=== PATIENT | male | born 1980 | race Caucasian/White ===

== ENCOUNTER 2017-01-19 01:08 | Inpatient (IN) | payer SELFPAY ==
[~2017-01-19] VITALS: Ht 180.3 cm; Wt 69.3 kg
[2017-01-19 01:30] VITALS: BP 107/60; PULSE 74; RESP 22; TEMP 98.9; O2SAT 100; O2SAT 99
[2017-01-19] MEDS ORDERED: ONDANSETRON HCL 4 MG/2 ML VIAL IV ONE (01:45)
[2017-01-19] MEDS ORDERED: SODIUM CHLOR 0.9% 1000 ML INJ 1,000 ML IV ONE (01:45)
[2017-01-19] MEDS ORDERED: LORazepam 2 MG/ML VIAL IV PUSH ONE (02:00)
[2017-01-19 02:04] LABS: AUTOMATED NEUTROPHIL # 8.4 TH/MM3 (1.8-7.7); BASOPHIL % 0.4 % (0.0-2.0); HEMATOCRIT 40.5 % (39.0-51.0); HEMO FLAGS DIFF FINAL; LYMPH % 9.8 % (9.0-44.0); MEAN CELL VOLUME 90.7 FL (80.0-100.0); MEAN CORPUSCULAR HEMOGLOBIN 30.5 PG (27.0-34.0); MEAN CORPUSCULAR HGB CONC 33.7 % (32.0-36.0); MONO % 6.6 % (0.0-8.0); NEUT % 83.2 % (16.0-70.0); PLATELET COUNT 156 TH/MM3 (150-450); RED BLOOD COUNT 4.47 MIL/MM3 (4.50-5.90); RED CELL DISTRIBUTION WIDTH 13.5 % (11.6-17.2); WHITE BLOOD COUNT 10.1 TH/MM3 (4.0-11.0)
[2017-01-19 02:26] LABS: ANION GAP 13 MEQ/L (5-15); AST (GOT) 135 U/L (15-37); BICARBONATE 22.8 MEQ/L (21.0-32.0); BLOOD UREA NITROGEN 21 MG/DL (7-18); CHLORIDE 104 MEQ/L (98-107); GLOMERULAR FILTRATION RATE 87 ML/MIN (>89); SODIUM (NA) 140 MEQ/L (136-145)
--- NOTE | 2017-01-19 02:29 | PD ---
HPI Chief Complaint: Psychiatric Symptoms Time Seen by Provider: 01:28 Travel History International Travel<30 days: No Contact w/Intl Traveler<30days: No Traveled to known affect area: No History of Present Illness HPI The patient is a 36 year old male who presents to the [facility] emergency department with a history of being brought in as a Bronson act after a standoff with the police since yesterday at 5:30 AM. This standoff lasted for many hours. The patient was locked in his apartment according to the record. Into the apartment was sprayed multiple cans of pepper spray called OC and tear gas called CS. The patient on arrival was placed in the deluge for decontamination. On arrival back to the room, the patient has a clear nasal discharge and occasional cough. The patient otherwise is in no acute distress. The patient reports feeling hungry and thirsty. He reports that he has not been eating or drinking throughout the day. The patient reports that he has a long-standing tendencies since childhood of stacking things when he gets anxious. He reports that he is in the process of starting a new job, and he has been under more stress recently. He has been stacking rocks outside of his home. He reports that one of his neighbors was getting upset about this and he thought that the police were called for this. He noticed that the police were outside the back of his home. He reports that he has a fear of the police, therefore he became agitated. He reports that things escalated from there. He denies having any depression, anxiety, suicidal, or homicidal ideations prior to this. He reports that when the police sprayed the pepper spray into his home he is concerned that they have destroyed most of his belongings. He reports that this made him depressed. A review of systems otherwise, the patient denies any recent fevers, any history of fever,neck pain, chest pain, shortness of breath, abdominal pain, vomiting, diarrhea, urinary symptoms, or neurologic symptoms. [facility] Past Medical History Narrative Medical The patient's past medical history is reportedly none. Past Surgical History Narrative Surgical The patient's past surgical history is significant for right knee arthroscopy. Social History Alcohol Use: Yes (occasional) Tobacco Use: Yes (a quarter of a pack per day) Substance Use: Yes (marijuana) Allergies-Medications (Allergen,Severity, Reaction): Coded Allergies: No Known Allergies (Unverified , 01/19/17) Reported Meds & Prescriptions Reported Meds & Active Scripts Active No Active Prescriptions or Reported Medications Narrative Medication None Review of Systems Except as stated in HPI: all other systems reviewed are Neg General / Constitutional: No: Fever Eyes: No: Visual changes HENT: Positive: Congestion, No: Headaches Cardiovascular: No: Chest Pain or Discomfort Respiratory: Positive: Cough, No: Shortness of Breath Gastrointestinal: No: Nausea, Vomiting, Diarrhea, Abdominal Pain Genitourinary: No: Dysuria Musculoskeletal: No: Pain Skin: No Rash Neurologic: No: Weakness, Focal Abnormalities, Change in Mentation, Slurred Speech, Sensory Disturbance Psychiatric: No: Depression Endocrine: No: Polydipsia Hematologic/Lymphatic: No: Easy Bruising Physical Exam Narrative General: The patient is a well-developed well-nourished male in no acute distress. The patient is somewhat anxious appearing on examination. Head and Neck exam: Head is normocephalic atraumatic. Eyes: EOMI, pupils are equal round and reactive to light. Nose: Midline septum with pink mucous membranes. He has a clear nasal discharge. Mouth: Dentition unremarkable. Moist mucus membranes. Posterior oropharynx is mildly erythematous. No tonsillar hypertrophy. Uvula midline. Airway patent. Neck: No palpable lymphadenopathy. No nuchal rigidity. No thyromegaly. Cardiovascular: Regular rate and rhythm without murmurs, gallops, or rubs. Lungs: Clear to auscultation bilaterally. No wheezes, rhonchi, or rales. Abdomen: Soft, without tenderness to palpation in all 4 quadrants of the abdomen. No guarding, rebound, or rigidity. Normal bowel sounds are audible. No tenderness on palpation of McBurney's point. Negative Carter's sign. Extremities: No clubbing, cyanosis, or edema. 2+ pulses in all 4 extremities. Back: No spinous process tenderness to palpation. No costovertebral angle tenderness to palpation. Neurologic Exam: Grossly nonfocal. Skin Exam: No rash noted. Intact skin that is warm and dry. Data Data Last Documented VS Vital Signs Date Time Temp Pulse Resp B/P Pulse Ox O2 Delivery O2 Flow Rate FiO2 01/19/17 01:30 98.9 74 22 107/60 100 01/19/17 01:30 Room Air Orders Complete Blood Count With Diff (01/19/17 01:37) Comprehensive Metabolic Panel (01/19/17 01:37) Thyroid Stimulating Hormone (01/19/17 01:37) Urinalysis - C+S If Indicated (01/19/17 01:37) Oximetry (01/19/17 01:37) Iv Access Insert/Monitor (01/19/17 01:37) Ecg Monitoring (01/19/17 01:37) Psych Screen (01/19/17 01:37) Drug Screen, Random Urine (01/19/17 01:37) Alcohol (Ethanol) (01/19/17 01:37) Salicylates (Aspirin) (01/19/17 01:37) Tylenol (Acetaminophen) (01/19/17 01:37) Sodium Chlor 0.9% 1000 Ml Inj (Ns 1000 M (01/19/17 01:45) Ondansetron Inj (Zofran Inj) (01/19/17 01:45) Lorazepam Inj (Ativan Inj) (01/19/17 02:00) Labs Laboratory Tests Test 01/19/17 01:55 White Blood Count 10.1 TH/MM3 Red Blood Count 4.47 MIL/MM3 Hemoglobin 13.6 GM/DL Hematocrit 40.5 % Mean Corpuscular Volume 90.7 FL Mean Corpuscular Hemoglobin 30.5 PG Mean Corpuscular Hemoglobin 33.7 % Concent Red Cell Distribution Width 13.5 % Platelet Count 156 TH/MM3 Mean Platelet Volume 7.7 FL Neutrophils (%) (Auto) 83.2 % Lymphocytes (%) (Auto) 9.8 % Monocytes (%) (Auto) 6.6 % Eosinophils (%) (Auto) 0.0 % Basophils (%) (Auto) 0.4 % Neutrophils # (Auto) 8.4 TH/MM3 Lymphocytes # (Auto) 1.0 TH/MM3 Monocytes # (Auto) 0.7 TH/MM3 Eosinophils # (Auto) 0.0 TH/MM3 Basophils # (Auto) 0.0 TH/MM3 CBC Comment DIFF FINAL Differential Comment Sodium Level 140 MEQ/L Potassium Level 4.0 MEQ/L Chloride Level 104 MEQ/L Carbon Dioxide Level 22.8 MEQ/L Anion Gap 13 MEQ/L Blood Urea Nitrogen 21 MG/DL Creatinine 0.98 MG/DL Estimat Glomerular Filtration 87 ML/MIN Rate Random Glucose 96 MG/DL Calcium Level 9.1 MG/DL Total Bilirubin 1.3 MG/DL Aspartate Amino Transf 135 U/L (AST/SGOT) Alanine Aminotransferase 68 U/L (ALT/SGPT) Alkaline Phosphatase 76 U/L Total Protein 7.1 GM/DL Albumin 4.2 GM/DL Thyroid Stimulating Hormone 0.295 uIU/ML 3rd Gen Salicylates Level LESS THAN 1.7 MG/DL Acetaminophen Level LESS THAN 2.0 MCG/ML Ethyl Alcohol Level LESS THAN 3 MG/DL MDM Medical Decision Making Medical Screen Exam Complete: Yes Emergency Medical Condition: Yes Medical Record Reviewed: Yes Differential Diagnosis Acute psychosis, versus schizophrenia, versus bipolar disorder with anjelica, versus substance induced mood disorder Narrative Course During the course of the patients emergency department visit, the patients history, examination, and differential diagnosis were reviewed with the patient. The patient had IV access obtained and blood work sent for analysis. The patient's Bronson act was reviewed. A psychiatric screen was ordered. The patient was initially provided normal saline 1 L IV fluid bolus, Zofran 4 mg IV. Ativan 0.5 mg IV for anxiety. The patients laboratory studies were reviewed and remarkable for a white count of 10.1, hemoglobin 13.6, platelets 156 with 83.2 neutrophils, salicylate less than 1.7, CMP is remarkable for a BUN of 21, GFR of 87, total bilirubin 1.3, AST 135, TSH 0.295, alcohol level less than 3, acetaminophen less than 2. The patient will require follow-up and further testing regarding the patient's low TSH including the T3-T4. The patient has been medically cleared and is awaiting evaluation by the psychiatric screener under a Bronson act. Diagnosis Primary Impression: Acute psychosis Additional Impression: Low TSH level Scripts No Active Prescriptions or Reported Meds Lisa Flores MD January 19, 2017 02:29
[2017-01-19 02:36] LABS: ACETAMINOPHEN LESS THAN 2.0 MCG/ML (10.0-30.0); ALKALINE PHOSPHATASE 76 U/L (45-117); ALT (GPT) 68 U/L (12-78); TOTAL BILIRUBIN ADULT 1.3 MG/DL (0.2-1.0)
[2017-01-19 07:21] VITALS: BP 126/72; PULSE 68; RESP 18; O2SAT 96
[2017-01-19 12:16] LABS: BLOOD, URINE TRACE (NEG); COMMENT (UR) CULT NOT INDICATED; CULTURE IF INDICATED CULT NOT INDICATED; GLUCOSE,URINE NEG (NEG); KETONE, URINE 80 mg/dL (NEG); NITRITE,URINE NEG (NEG); SQUAMOUS EPITHELIAL CELL URINE <1 /hpf (0-5); URINE COLOR YELLOW (YELLW/STRAW)
[2017-01-19 12:28] LABS: AMPHETAMINE, URINE NEG (NEG); BARBITURATES, URINE NEG (NEG); COCAINE, URINE NEG (NEG)
[2017-01-19] MEDS ORDERED: LORazepam 1 MG TAB PO PRN (17:30)
[2017-01-19] MEDS ORDERED: LORazepam 2 MG/ML VIAL IM PRN ×2 (17:30)
[2017-01-19] MEDS ORDERED: LORazepam 0.5 MG TAB PO PRN (18:00)
[2017-01-19] MEDS ORDERED: ACETAMINOPHEN 325 MG TAB PO PRN (18:00)
[2017-01-19] MEDS ORDERED: MAGNESIUM HYDROXIDE SUSP 30 ML CUP PO PRN (18:00)
[2017-01-19] MEDS: NICOTINE 21 MG/24 HR PATCH T-DERMAL SCH (18:00)
[2017-01-19] MEDS ORDERED: ALUMINUM/MAGNESIUM/SIMETH 30 ML CUP PO PRN (18:00)
--- NOTE | 2017-01-19 18:41 | RADRPT ---
EXAM DATE/TIME: 01/19/2017 18:26 [place] COMPARISON: No previous studies available for comparison. INDICATIONS : Left foot pain. Patient stepped on glass last night. Pain on bottom of foot and around the first digi t. MEDICAL HISTORY : None. SURGICAL HISTORY : None. ENCOUNTER: Initial ACUITY: 2 days PAIN SCORE: 8/10 LOCATION: Left foot. FINDINGS: AP, lateral and oblique views of the left foot were obtained and demonstrate a small nondisplaced obl ique fracture through the medial base of the first proximal phalanx. There is overlying soft tissue s welling. No other bony abnormalities are identified. There are no radiopaque foreign bodies. CONCLUSION: 1. Nondisplaced fracture through the medial base of the first proximal phalanx. 2. Soft tissue swelling with no radiopaque foreign body identified. Nathen Gomes MD on January 19, 2017 at 18:38 Board Certified Radiologist. This report was verified electronically.
--- NOTE | 2017-01-19 19:14 | PD ---
Physical Exam Date Seen by Provider: January 19, 2017 Time Seen by Provider: 19:12 Narrative I was asked by the nurse to evaluate the patient's left foot. The patient believes he has last to the plantar aspect of his left foot and has left great toe pain. On exam, the patient is ecchymosis over the left great toe. He has full range of motion. He has a small superficial laceration to the plantar aspect that is less than 0.5 cm. No glass is able to be palpated. Data Data Last Documented VS Vital Signs Date Time Temp Pulse Resp B/P Pulse Ox O2 Delivery O2 Flow Rate FiO2 01/19/17 07:21 96 Room Air 01/19/17 07:21 68 18 126/72 01/19/17 01:30 98.9 Orders Complete Blood Count With Diff (01/19/17 01:37) Comprehensive Metabolic Panel (01/19/17 01:37) Thyroid Stimulating Hormone (01/19/17 01:37) Urinalysis - C+S If Indicated (01/19/17 01:37) Oximetry (01/19/17 01:37) Iv Access Insert/Monitor (01/19/17 01:37) Ecg Monitoring (01/19/17 01:37) Psych Screen (01/19/17 01:37) Drug Screen, Random Urine (01/19/17 01:37) Alcohol (Ethanol) (01/19/17 01:37) Salicylates (Aspirin) (01/19/17 01:37) Tylenol (Acetaminophen) (01/19/17 01:37) Sodium Chlor 0.9% 1000 Ml Inj (Ns 1000 M (01/19/17 01:45) Ondansetron Inj (Zofran Inj) (01/19/17 01:45) Lorazepam Inj (Ativan Inj) (01/19/17 02:00) Diet Regular Basic (01/19/17 Breakfast) Diet Regular Basic (01/19/17 Dinner) Admit To Inpatient Psych (01/19/17 ) Vital Signs (Adult) SHARON.Q12H.E (01/19/17 17:28) Activity Oob Ad Katia (01/19/17 17:28) Lorazepam (Ativan) (01/19/17 17:30) Lorazepam Inj (Ativan Inj) (01/19/17 17:30) Lorazepam (Ativan) (01/19/17 18:00) Lorazepam Inj (Ativan Inj) (01/19/17 17:30) Acetaminophen (Tylenol) (01/19/17 18:00) Magnesium Hydroxide Liq (Milk Of Magnesi (01/19/17 18:00) Al-Mag Hy-Si 40-40-4 Mg/Ml Liq (Mag-Al P (01/19/17 18:00) Nicotine 21 Mg Patch.24 Hr (Habitrol 21 (01/19/17 18:00) Basic Metabolic Panel (Bmp) (01/20/17 06:00) Lipid Profile (01/20/17 06:00) Hemoglobin (Hgb) A1c (01/20/17 06:00) Labs Laboratory Tests Test 01/19/17 01/19/17 01:55 11:40 White Blood Count 10.1 TH/MM3 Red Blood Count 4.47 MIL/MM3 Hemoglobin 13.6 GM/DL Hematocrit 40.5 % Mean Corpuscular Volume 90.7 FL Mean Corpuscular Hemoglobin 30.5 PG Mean Corpuscular Hemoglobin 33.7 % Concent Red Cell Distribution Width 13.5 % Platelet Count 156 TH/MM3 Mean Platelet Volume 7.7 FL Neutrophils (%) (Auto) 83.2 % Lymphocytes (%) (Auto) 9.8 % Monocytes (%) (Auto) 6.6 % Eosinophils (%) (Auto) 0.0 % Basophils (%) (Auto) 0.4 % Neutrophils # (Auto) 8.4 TH/MM3 Lymphocytes # (Auto) 1.0 TH/MM3 Monocytes # (Auto) 0.7 TH/MM3 Eosinophils # (Auto) 0.0 TH/MM3 Basophils # (Auto) 0.0 TH/MM3 CBC Comment DIFF FINAL Differential Comment Sodium Level 140 MEQ/L Potassium Level 4.0 MEQ/L Chloride Level 104 MEQ/L Carbon Dioxide Level 22.8 MEQ/L Anion Gap 13 MEQ/L Blood Urea Nitrogen 21 MG/DL Creatinine 0.98 MG/DL Estimat Glomerular Filtration 87 ML/MIN Rate Random Glucose 96 MG/DL Calcium Level 9.1 MG/DL Total Bilirubin 1.3 MG/DL Aspartate Amino Transf 135 U/L (AST/SGOT) Alanine Aminotransferase 68 U/L (ALT/SGPT) Alkaline Phosphatase 76 U/L Total Protein 7.1 GM/DL Albumin 4.2 GM/DL Thyroid Stimulating Hormone 0.295 uIU/ML 3rd Gen Salicylates Level LESS THAN 1.7 MG/DL Acetaminophen Level LESS THAN 2.0 MCG/ML Ethyl Alcohol Level LESS THAN 3 MG/DL Urine Color YELLOW Urine Turbidity CLEAR Urine pH 6.0 Urine Specific [place] 1.023 Urine Protein 30 mg/dL Urine Glucose (UA) NEG mg/dL Urine Ketones 80 mg/dL Urine Occult Blood TRACE Urine Nitrite NEG Urine Bilirubin NEG Urine Urobilinogen LESS THAN 2.0 MG/DL Urine Leukocyte Esterase NEG Urine RBC LESS THAN 1 /hpf Urine WBC 1 /hpf Urine Squamous Epithelial <1 /hpf Cells Microscopic Urinalysis Comment CULT NOT INDICATED Urine Opiates Screen NEG Urine Barbiturates Screen NEG Urine Amphetamines Screen NEG Urine Benzodiazepines Screen NEG Urine Cocaine Screen NEG Urine Cannabinoids Screen POS MDM Supervised Visit with AGUSTINA: No Interpretation(s) X-ray of the left foot CONCLUSION: 1. Nondisplaced fracture through the medial base of the first proximal phalanx. 2. Soft tissue swelling with no radiopaque foreign body identified. Narrative Course 36-year-old male is in the emergency department for psychiatric evaluation. I was asked to evaluate his left foot. No foreign body seen on x-ray. He does have a nondisplaced fracture to the medial base of the first proximal phalanx. Patient is placed in a postop shoe and the great toe is geno taped. He is instructed to follow-up with hot die press feeder. He verbalizes agreement and understanding. Patient remains medically cleared for psychiatric screening and evaluation. Diagnosis Primary Impression: Acute psychosis Additional Impression: Low TSH level Patient Instructions: General Instructions Departure Forms: Tests/Procedures Scripts No Active Prescriptions or Reported Meds Ginny Guardado January 19, 2017 19:14
[2017-01-19 20:00] VITALS: BP 134/71; PULSE 78; RESP 18; TEMP 98.4; O2SAT 99
[2017-01-20 05:01] VITALS: BP 120/58; PULSE 65; RESP 18; TEMP 97.8; O2SAT 98
[2017-01-20 08:23] LABS: ANION GAP 10 MEQ/L (5-15); BICARBONATE 29.4 MEQ/L (21.0-32.0); BLOOD UREA NITROGEN 11 MG/DL (7-18); CHLORIDE 105 MEQ/L (98-107); GLOMERULAR FILTRATION RATE 94 ML/MIN (>89); POTASSIUM 3.8 MEQ/L (3.5-5.1); SODIUM (NA) 144 MEQ/L (136-145)
[2017-01-20 08:27] LABS: HDL CHOLESTEROL 93.2 MG/DL (40.0-60.0); LDL CHOLESTEROL 30 MG/DL (0-99)
[2017-01-20] MEDS: REMOVE OLD PATCH T-DERMAL SCH (09:00)
[2017-01-20] MEDS: NICOTINE 21 MG/24 HR PATCH T-DERMAL SCH (09:00)
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
--- NOTE | 2017-01-20 12:48 | PD.CONS ---
Provisional Diagnosis Admission Date January 19, 2017 at 17:33 [place]. Brief psychotic disorder F 23 History of Present Illness Service Psychiatry Consult Requested By Dr. Rae Reason for Consult Second opinion Bronson act Primary Care Physician Unknown HPI Patient is a 36-year-old white male admitted to Dr. Rae service under the Bronson act. Dr. Dr. Rae's dictation reviewed and agreed with. Patient seen by me with nurse Phylicia. Patient is quite delusional grandiose showing no insight into his disease. Minimizing the multiple our SWAT team involved police standoff. Dr. Rae has signed first opinion petition supporting Bronson act. I agree. Patient meets criteria for involuntary psychiatric hospitalization under the Bronson act. Thus I will cosign second opinion petition supporting Bronson act Past Family Social History Coded Allergies: No Known Allergies (Unverified , 01/19/17) No Active Prescriptions or Reported Meds Current Medications Medications (Trade) Dose Ordered Sig/Garcia Route Start Time Stop Time Status Last Admin (Ativan) 1 mg Q6H PRN PO 01/19/17 17:30 (Ativan Inj) 1 mg Q6H PRN IM 01/19/17 17:30 (Tylenol) 650 mg Q4H PRN PO 01/19/17 18:00 (Milk Of Magnesia Liq) 30 ml DAILY PRN PO 01/19/17 18:00 (Mag-Al Plus Susp Liq) 30 ml Q6H PRN PO 01/19/17 18:00 (Habitrol 21 Mg Patch.24 Hr) 1 patch DAILY T-DERMAL 01/19/17 18:00 Miscellaneous Information 1 DAILY T-DERMAL 01/20/17 09:00 Physical Exam Vital Signs Vital Signs Date Time Temp Pulse Resp B/P Pulse Ox O2 Delivery O2 Flow Rate FiO2 01/20/17 05:01 97.8 65 18 120/58 98 01/19/17 07:21 Room Air Mental Status Examination Alert oriented white male appears somewhat younger than stated age light red shortcut hair. Calm but guarded with fair eye contact Appearance Clean neatly Speech: Unremarkable Orientation: x3 Memory: Unremarkable Thought Process: Logical Thought Content: Other (delusional, grandiose) Language Fair Fund of Knowledge Fair Hallucination Type: None (denies) Attention and Concentration: Other (fair) Suicidal Ideation: No (denies) Previous Suicide Attempts: No (denies) Homicidal Ideation: No (denies) Previous Homicide Attempts: No (deny) Insight: Poor Judgment: Poor Affect: Other (decreased range and intensity) Mood: Euthymic (to somewhat restricted) Motor Activity: Normal gait Assessment & Plan Problem List: (1) BRIEF PSYCHOTIC DISORDER ICD Code: F23 Assessment & Plan Estimated LOS: days Jaylon Alvarez MD January 20, 2017 12:48
[2017-01-20 16:11] LABS: HEMOGLOBIN A1a 0.9 %; HEMOGLOBIN A1b 1.3 %; HEMOGLOBIN Ao 87.1 %; HEMOGLOBIN LA1C 1.9 %; HEMOGLOBIN P3 3.2 %
[2017-01-20 18:05] VITALS: BP 136/62; PULSE 80; RESP 17; TEMP 98.1; O2SAT 99
[2017-01-21 05:41] VITALS: BP 137/74; PULSE 75; RESP 16; TEMP 98; O2SAT 98
--- NOTE | 2017-01-21 05:51 | PD.CONS ---
HPI Service [facility] Consult Requested By Dr. Rae Reason for Consult Assist in management of medical condition. Patient believes he has a fractured foot. Please evaluate. Primary Care Physician Unknown Diagnoses: History of Present Illness Written by Mariama Mckeon, acting as scribe for Dr. Everett on 01/21/17 at 05: 51. This is a 36-year-old male patient who denies prior medical history. Patient is currently an inpatient psychiatric center after a 19 hour standoff with the police department. We have been consulted for assistance in management of medical condition including non-displaced fracture through the medial base of the first proximal phalanx, soft tissue swelling with no radio opaque foreign body identified. Patient reports that during the standoff with the police 2016 he struck his toe on a pile of wood in his yard. Patient reports mild discomfort to the worse with weightbearing better with rest. Patient does have associated edema and ecchymosis surrounding left foot first digit. Patient offers no other complaints at this time. Patient denies chest pain, shortness of breath, nausea, vomiting, diarrhea, constipation or black tarry stools or bright red blood per rectum. Review of Systems Except as stated in HPI: all other systems reviewed are Neg Past Family Social History Allergies: Coded Allergies: No Known Allergies (Unverified , 01/19/17) Past Medical History Denies prior medical history Past Surgical History orthoscopic surgery on right knee for repair of meniscus Reported Medications No Active Prescriptions or Reported Medications Active Ordered Medications Current Medications Medications (Trade) Dose Ordered Sig/Garcia Route Start Time Stop Time Status Last Admin (Ativan) 1 mg Q6H PRN PO 01/19/17 17:30 (Ativan Inj) 1 mg Q6H PRN IM 01/19/17 17:30 (Tylenol) 650 mg Q4H PRN PO 01/19/17 18:00 (Milk Of Magnesia Liq) 30 ml DAILY PRN PO 01/19/17 18:00 (Mag-Al Plus Susp Liq) 30 ml Q6H PRN PO 01/19/17 18:00 (Habitrol 21 Mg Patch.24 Hr) 1 patch DAILY T-DERMAL 01/19/17 18:00 Miscellaneous Information 1 DAILY T-DERMAL 01/20/17 09:00 Family History Patient reports his mother has she had hypertension, osteoporosis and thyroid disease Patient reports his father after bleeding complications postoperatively Social History 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 SKIN: Left great toe mildly edematous with resolving ecchymosis present HEAD: Atraumatic. Normocephalic. No temporal or scalp tenderness. EYES: Extraocular motions intact. No scleral icterus. No injection or drainage. CARDIOVASCULAR: Regular rate and rhythm without murmurs, gallops, or rubs. RESPIRATORY: Clear to auscultation. Breath sounds equal bilaterally. No wheezes , rales, or rhonchi. GASTROINTESTINAL: Abdomen soft, non-tender, nondistended. No guarding. MUSCULOSKELETAL: Extremities without clubbing, cyanosis, or edema. No joint tenderness, effusion, or edema noted. No calf tenderness. Negative Homans sign bilaterally. NEUROLOGICAL: Awake and alert. No focal deficits identified. Motor and sensory grossly within normal limits. Five out of 5 muscle strength in all muscle groups. Normal speech. Laboratory Laboratory Tests Test 01/20/17 07:14 Sodium Level 144 Potassium Level 3.8 Chloride Level 105 Carbon Dioxide Level 29.4 Anion Gap 10 Blood Urea Nitrogen 11 Creatinine 0.91 Estimat Glomerular Filtration 94 Rate Random Glucose 87 Hemoglobin A1c 5.1 Calcium Level 8.8 Triglycerides Level 54 Cholesterol Level 134 LDL Cholesterol 30 HDL Cholesterol 93.2 Cholesterol/HDL Ratio 1.43 Result Diagram: 01/19/17 0155 01/20/17 0714 Imaging Last Impressions Foot X-Ray 01/19/17 0000 Signed Impressions: Service Date/Time: Thursday, January 19, 2017 18:26 - CONCLUSION: 1. Nondisplaced fracture through the medial base of the first proximal phalanx. 2. Soft tissue swelling with no radiopaque foreign body identified. Nathen Gomes MD Assessment and Plan Problem List: (1) Acute psychosis ICD Code: F23 Status: Acute (2) Fracture, phalanx, foot ICD Code: S92.919A Status: Acute (3) Low TSH level ICD Code: R94.6 Status: Acute Assessment and Plan This is a 36-year-old male patient who denies prior medical history. Patient is currently an inpatient psychiatric center after a 19 hour standoff with the police department. We have been consulted for assistance in management of medical condition including non-displaced fracture through the medial base of the first proximal phalanx, soft tissue swelling with no radio opaque foreign body identified. Patient reports that during the standoff with the police 2016 he struck his toe on a pile of wood in his yard. Left foot Nondisplaced fracture first proximal phalanx left foot x-ray reviewed and reveals 1. Nondisplaced fracture through the medial base of the first proximal phalanx. 2. Soft tissue swelling with no radiopaque foreign body identified. As patient is currently inpatient psychiatric unit recommend podiatry consultation for management of nondisplaced fracture first proximal phalanx Low TSH level- initial TSH slightly low at 0.295 Possibly related to stress Recheck TSH also check T3 and T4 Acute psychosis management per psychiatric team DVT prophylaxis patient is ambulatory Thank you for the consultation and for allowing us to participate in the care of this patient Discussed with patient as well as nursing This note was transcribed by scribe [Joana Mckeon]. I, Dr. Gris Everett personally performed the history, physical exam, and medical decision making; and confirmed the accuracy of the information in the transcribed note. Authenticated by Dr. Gris Everett on 01/21/17 at 05:51. Mariama Mckeon January 21, 2017 05:51 Gris Everett MD January 21, 2017 07:47
[2017-01-21] MEDS: REMOVE OLD PATCH T-DERMAL SCH (09:00)
[2017-01-21] MEDS: NICOTINE 21 MG/24 HR PATCH T-DERMAL SCH (09:00)
[2017-01-21 12:17] LABS: FREE T4 1.17 NG/DL (0.76-1.46)
--- NOTE | 2017-01-21 14:01 | PD.CONS ---
History of Present Illness Service Podiatry Consult Requested By Reason for Consult Left hallux fracture Primary Care Physician Unknown Diagnoses: Past Family Social History Allergies: Coded Allergies: No Known Allergies (Unverified , 01/19/17) Physical Exam Vital Signs Vital Signs Date Time Temp Pulse Resp B/P Pulse Ox O2 Delivery O2 Flow Rate FiO2 01/21/17 05:41 98.0 75 16 137/74 98 01/20/17 18:05 98.1 80 17 136/62 99 Physical Exam GENERAL: This is a well-nourished, well-developed patient, in no apparent distress. SKIN: No rashes, ecchymoses or lesions. Cool and dry. HEAD: Atraumatic. Normocephalic. No temporal or scalp tenderness. EYES: Pupils equal round and reactive. Extraocular motions intact. No scleral icterus. No injection or drainage. ENT: Nose without bleeding, purulent drainage or septal hematoma. Throat without erythema, tonsillar hypertrophy or exudate. Uvula midline. Airway patent. NECK: Trachea midline. No JVD or lymphadenopathy. Supple, nontender, no meningeal signs. CARDIOVASCULAR: Regular rate and rhythm without murmurs, gallops, or rubs. RESPIRATORY: Clear to auscultation. Breath sounds equal bilaterally. No wheezes , rales, or rhonchi. GASTROINTESTINAL: Abdomen soft, non-tender, nondistended. No hepato-splenomegaly , or palpable masses. No guarding. MUSCULOSKELETAL: Extremities without clubbing, cyanosis, or edema. No joint tenderness, effusion, or edema noted. No calf tenderness. Negative Homans sign bilaterally. NEUROLOGICAL: Awake and alert. Cranial nerves II through XII intact. Motor and sensory grossly within normal limits. Five out of 5 muscle strength in all muscle groups. Normal speech. Laboratory Laboratory Tests Test 01/21/17 11:26 Free Thyroxine 1.17 Total Triiodothyronine 119 Thyroid Stimulating Hormone 1.090 3rd Gen Result Diagram: 01/19/17 0155 01/20/17 0714 Imaging Xray Left proximal phalanx nondisplaced intraarticular fracture Course Pt not seen, waited and pt is doing group session and unavailable . Condition discussed with nurse Assessment and Plan Assessment and Plan Pt fracture is nonsurgical. Nothing needed per podiatry. Plan is WBAT in post op shoe. Thank you for consult Dank Bright DPM January 21, 2017 14:01
[2017-01-21 18:00] VITALS: BP 141/67; PULSE 70; RESP 18; TEMP 98; O2SAT 96
[2017-01-22 06:16] VITALS: BP 127/63; PULSE 65; RESP 18; TEMP 97.1; O2SAT 96
[2017-01-22] MEDS: NICOTINE 21 MG/24 HR PATCH T-DERMAL SCH (09:00)
[2017-01-22] MEDS: REMOVE OLD PATCH T-DERMAL SCH (09:00)
--- NOTE | 2017-01-22 09:44 | HHI.PYPN ---
Subjective Remarks This is the psychiatric progress note for January 21, 2017. Patient continues to be psychotic with paranoid delusions. He continues to have very little insight as to why he has been admitted. He is not competent to make medical decisions. This physician is attempting to find a guardian advocate for him. Review of Systems ROS Limitations: Psychotic Except as stated in HPI: all other systems reviewed are Neg Objective Alert: Yes [place]: Person, Place, Date, Situation Mood: Calm Affect: Restricted Memory Intact: Immediate, Recent, Remote Hallucinations: Auditory Delusions: Yes Delusion Type: Paranoid, Other Suicidal: Ideation Homicidal: Ideation Insight/Judgment Impaired. Labs Test 01/21/17 11:26 Free Thyroxine 1.17 NG/DL Total Triiodothyronine 119 NG/DL Thyroid Stimulating Hormone 1.090 uIU/ML 3rd Gen Vitals/IOs Vital Signs Date Time Temp Pulse Resp B/P Pulse Ox O2 Delivery O2 Flow Rate FiO2 01/22/17 06:16 97.1 65 18 127/63 96 01/19/17 07:21 Room Air Intake and Output 01/21/17 01/21/17 01/22/17 08:00 16:00 00:00 Intake Total 360 ml Balance 360 ml Assessment & Plan Problem List: (1) BRIEF PSYCHOTIC DISORDER ICD Code: F23 Assessment & Plan Estimated LOS: 5 days patient continues to need antipsychotic medication treatment. However he has very limited insight and impaired judgment. This physician feels he is not competent to consent or refuse treatment at this time. Guardian advocate is being sought. Justification for Cont. Inpt. Very likely to decompensate at lower level of care. Jeffery Rae MD January 22, 2017 09:44
--- NOTE | 2017-01-22 13:50 | HHI.PYPN ---
Subjective Remarks Patient continues to be paranoid but is not violent or threatening to harm himself or others. Review of Systems Except as stated in HPI: all other systems reviewed are Neg Objective Alert: Yes [place]: Person, Place, Date, Situation Mood: Calm Affect: Restricted Memory Intact: Immediate, Recent, Remote Hallucinations: Auditory Delusions: Yes Delusion Type: Paranoid, Other Suicidal: Ideation Homicidal: Ideation Insight/Judgment Impaired but patient does not want to take medication and does not appear at this point to be a danger to self or others. Vitals/IOs Vital Signs Date Time Temp Pulse Resp B/P Pulse Ox O2 Delivery O2 Flow Rate FiO2 01/22/17 06:16 97.1 65 18 127/63 96 01/19/17 07:21 Room Air Intake and Output 01/21/17 01/21/17 01/22/17 08:00 16:00 00:00 Intake Total 360 ml Balance 360 ml Assessment & Plan Problem List: (1) BRIEF PSYCHOTIC DISORDER ICD Code: F23 Assessment & Plan Estimated LOS: 3-7 days if patient continues to demonstrate appropriate behavior , despite paranoid and delusional thinking, this physician may have to discharge him. If he has a place to go, his home, and is not suicidal or homicidal, he may no longer be Bronson act able. Justification for Cont. Inpt. Requires further evaluation. Jeffery Rae MD January 22, 2017 13:50
[2017-01-22 17:12] VITALS: BP 114/61; PULSE 81; RESP 17; TEMP 98.6; O2SAT 96
[2017-01-23 06:12] VITALS: BP 126/74; PULSE 68; RESP 17; TEMP 97.6; O2SAT 100
[2017-01-23] MEDS: NICOTINE 21 MG/24 HR PATCH T-DERMAL SCH (09:00)
[2017-01-23] MEDS: REMOVE OLD PATCH T-DERMAL SCH (09:00)
--- NOTE | 2017-01-23 17:05 | HHI.PYPN ---
Subjective Remarks Pt seen and discussed with staff. He remains highly delusional and paranoid and is easily agitated. Insight into illness and situation is very poor. 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 They are suing me for breech of contract because everyone wants to work for me." As interview proceeds, he derails into more paranoid ideations and delusional content. Objective Alert: Yes [place]: Person, Place, Date, Situation Mood: Anxious Affect: Other (intense wide eyed stare) Memory Intact: Immediate, Recent, Remote Hallucinations: Auditory Delusions: Yes Delusion Type: Grandiose, Paranoid Suicidal: Ideation (denies) Homicidal: Ideation (denies) Insight/Judgment poor Vitals/IOs Vital Signs Date Time Temp Pulse Resp B/P Pulse Ox O2 Delivery O2 Flow Rate FiO2 01/23/17 06:12 97.6 68 17 126/74 100 01/19/17 07:21 Room Air Assessment & Plan Problem List: (1) BRIEF PSYCHOTIC DISORDER ICD Code: F23 Assessment & Plan Will start Abilify 5mg PO Qdaily to target psychosis and mood. Titrate to effective dose. Risks vs benefits, indication for use and potential side effects including tardive dyskinesia and metabolic syndrome discussed. Estimated LOS: days Justification for Cont. Inpt. psychotic Samara Casas MD January 23, 2017 17:05
[2017-01-23 18:00] VITALS: BP 143/65; PULSE 72; RESP 18; TEMP 97.4; O2SAT 97
[2017-01-24 05:36] VITALS: BP 130/64; PULSE 59; RESP 16; TEMP 96.8; O2SAT 98
[2017-01-24] MEDS: NICOTINE 21 MG/24 HR PATCH T-DERMAL SCH (09:00)
[2017-01-24] MEDS: REMOVE OLD PATCH T-DERMAL SCH (09:00)
[2017-01-24] MEDS: ARIPiprazole 5 MG TAB PO SCH (09:28)
--- NOTE | 2017-01-24 15:43 | HHI.PYPN ---
Subjective Remarks Pt seen and discussed with staff. Pt has been less labile and intrusive. He was compliant with Abilify. He reports that he experienced some mild nausea with first dose but quickly resolved. Insight into illness is poor and he remains paranoid and suspicious. No SI/HI Objective Alert: Yes [place]: Person, Place, Date, Situation Mood: Calm Affect: Restricted Memory Intact: Immediate, Recent, Remote Hallucinations: Auditory Delusions: Yes Delusion Type: Grandiose, Paranoid Suicidal: Ideation (denies) Homicidal: Ideation (denies) Insight/Judgment poor Vitals/IOs Vital Signs Date Time Temp Pulse Resp B/P Pulse Ox O2 Delivery O2 Flow Rate FiO2 01/24/17 05:36 96.8 59 16 130/64 98 Intake and Output 01/23/17 01/23/17 01/24/17 08:00 16:00 00:00 Intake Total 600 ml 600 ml Balance 600 ml 600 ml Assessment & Plan Problem List: (1) BRIEF PSYCHOTIC DISORDER ICD Code: F23 Assessment & Plan Continue Abilify titration. Continue hospitalization for safety. Estimated LOS: days Justification for Cont. Inpt. impairments in reality testing Samara Casas MD January 24, 2017 15:43
[2017-01-25 05:49] VITALS: BP 119/65; PULSE 56; RESP 18; TEMP 97.9; O2SAT 99
[2017-01-25] MEDS: NICOTINE 21 MG/24 HR PATCH T-DERMAL SCH (08:08)
[2017-01-25] MEDS: REMOVE OLD PATCH T-DERMAL SCH (08:08)
[2017-01-25] MEDS: ARIPiprazole 5 MG TAB PO SCH (08:42)
--- NOTE | 2017-01-25 12:26 | HHI.PYPN ---
Subjective Remarks Patient seen in [place] with nurse Naomi Ibrahim counselor Talia. Chart reviewed. Patient compliant medications. However patient remains markedly paranoid with underlying irritability. Showing no insight into his behaviors her taking responsibility for the consequences of his behaviors. Will increase Abilify to 10 mg daily Review of Systems Except as stated in HPI: all other systems reviewed are Neg Objective Alert: Yes [place]: Person, Place, Date, Situation Mood: Calm Affect: Restricted Memory Intact: Immediate, Recent, Remote Hallucinations: Auditory Delusions: Yes Delusion Type: Grandiose, Paranoid Suicidal: Ideation (denies) Homicidal: Ideation (denies) Insight/Judgment Very poor Vitals/IOs Vital Signs Date Time Temp Pulse Resp B/P Pulse Ox O2 Delivery O2 Flow Rate FiO2 01/25/17 05:49 97.9 56 18 119/65 99 Assessment & Plan Problem List: (1) BRIEF PSYCHOTIC DISORDER ICD Code: F23 Assessment & Plan Estimated LOS: days patient remained psychotic paranoid and irritable. Though compliant medications. No behavioral problems on unit Justification for Cont. Inpt. At this time patient will decompensate if placed in the lower level of care Discharge Planning To be determined Jaylon Alvarez MD January 25, 2017 12:26
[2017-01-25 16:57] VITALS: BP 113/65; PULSE 77; RESP 18; TEMP 98.5; O2SAT 98
[2017-01-26] MEDS: REMOVE OLD PATCH T-DERMAL SCH (08:17)
[2017-01-26] MEDS: NICOTINE 21 MG/24 HR PATCH T-DERMAL SCH (08:17)
[2017-01-26] MEDS ORDERED: ARIPiprazole 10 MG TAB PO SCH (09:00)
--- NOTE | 2017-01-26 09:58 | HHI.DS ---
Psychiatry Discharge Summary Inpatient Psychiatric care?: Yes Advance Directive: No Reason Not Provided: declined Mental Health AdvanceDirective: No Health Care Proxy: No Admission Admission Date January 19, 2017 at 17:33 Admission Diagnosis: (1) BRIEF PSYCHOTIC DISORDER ICD Code: F23 Brief History Patient is a 36-year-old white male admitted to Dr. Rae service under the Bronson act. Dr. Dr. Rae's dictation reviewed and agreed with. Patient seen by me with nurse Phlyicia. Patient is quite delusional grandiose showing no insight into his disease. Minimizing the multiple our SWAT team involved police standoff. Dr. Rae has signed first opinion petition supporting Bronson act. I agree. Patient meets criteria for involuntary psychiatric hospitalization under the Bronson act. Thus I will cosign second opinion petition supporting Bronson act Tobacco Use In Past 30 Days: 4 or Less Cigarettes/Day Alcohol Use: Monthly or Less Hospital Course Patient was pleasant, calm and cooperative throughout his hospital course. He was also compliant with his Abilify without objection. He participated in individual and group therapies. At the time of discharge he was willing to seek outpatient follow up at [facility] and to continue taking the Abilify. No procedures were performed. Results Blood Pressure 113 / 65 Vital Signs Date Time Temp Pulse Resp B/P Pulse Ox O2 Delivery O2 Flow Rate FiO2 01/25/17 16:57 98.5 77 18 113/65 98 None pending Summary of Procedures None Imaging Last Impressions Foot X-Ray 01/19/17 0000 Signed Impressions: Service Date/Time: Thursday, January 19, 2017 18:26 - CONCLUSION: 1. Nondisplaced fracture through the medial base of the first proximal phalanx. 2. Soft tissue swelling with no radiopaque foreign body identified. Nathen Gomes MD Pending results at discharge: No Medications # of Antipsychotic meds at D/C: 1 Appropriate >1 Antipsych meds?: 1 Approp Antipsych med options 1 - Minimum of three failed multiple trials of monotherapy. 2 - Documented plan to taper to monotherapy due to previous use of multiple meds OR cross-taper in progress at D/C. 3 - Documentation of augmentation of Clozapine. 4 - Justification other than those listed in allowable values 1-3, document here : Discharge Discharge Date: January 26, 2017 Discharge Diagnosis: (1) BRIEF PSYCHOTIC DISORDER Diagnosis: Principal ICD Code: F23 Mental Status Exam at Disch No suicidal or homicidal ideation, plan or intent. Some paranoid ideation but willing to take too little responsibility for his recent behavior with the police. Cognition intact. Patient calm, pleasant and cooperative. Pt Condition on Discharge: Stable Discharge Disposition: Discharge Home Discharge Instructions Diet Instructions: As Tolerated, No Restrictions Activities you can perform: Regular-No Restrictions Discharge Time <= 30 minutes Discharge/Advance Care Plan Health Problems: (1) BRIEF PSYCHOTIC DISORDER Goals to promote your health * To prevent worsening of your condition and complications * To maintain your health at the optimal level Directions to meet your goals Take your medications as prescribed Follow your dietary instruction Follow activity as directed Keep your appointments as scheduled Take your immunizations and boosters as scheduled If your symptoms worsen call your PCP, if no PCP go to Urgent Care Center or Emergency Room For 24/ questions related to your inpatient stay or results of tests pending at discharge, please contact Dr. Jeffery Rae at Smoking is Dangerous to Your Health. Avoid second hand smoking Jeffery Rae MD January 26, 2017 09:58
[2017-01-26] MEDS ORDERED: ARIP1TAB12 PO (09:59)
== END 2017-01-26 14:10 | disposition home or self-care (01) | DRG 885 ==
LOC: NEPC 01:08 → NEDA 17:33 → H260 20:00
PROVIDERS: ADMIT Psychiatry & Neurology Psychiatry; ATTEND Psychiatry & Neurology Psychiatry
DX: F23 Brief psychotic disorder (principal); R45.851 Suicidal ideations; F22 Delusional disorders; F12.90 Cannabis use, unspecified, uncomplicated; F41.9 Anxiety disorder, unspecified; Z72.0 Tobacco use
CPT/HCPCS: 73630; 80048; 80053; 80061; 80307; 81001; 83036; 84439; 84443; 84480; 85025; 96361; 96374; 96375; J2060; J2405; J7030; L3260